=== PATIENT | male | born 1975 | race Two or more races ===

== ENCOUNTER 2018-01-14 00:21 | Emergency (ER) | payer MEDICARE, MEDICAID ==
[2018-01-14 01:09] LABS: HEMATOCRIT 51.7 % (41.0-60); HEMOGLOBIN 17.7 gm/dL (12-16); MEAN CELL VOLUME 89.5 fl (80-99); MEAN CORPUSCULAR HEMOGLOBIN 30.7 pg (26.0-30.0); MEAN CORPUSCULAR HGB CONC 34.3 pg (28.0-36.0); MEAN PLATELET VOLUME 9.1 fl; PLATELET COUNT 311 Th/cmm (150-400); RED BLOOD COUNT 5.77 Mil/cmm (4.30-5.70); RED CELL DISTRIBUTION WIDTH 12.4 % (11.5-20.0)
[2018-01-14] MEDS ORDERED: Lactated Ringer 1,000 ML IV ONE (01:11)
--- NOTE | 2018-01-14 01:19 | ED Physician Chart ---
ED Chief Complaint/HPI - Patient Information Date Seen:: 01/14/18 Time Seen:: 00:36 Chief Complaint:: abdominal pain History of Present Illness:: THIS IS A 42 YO MALE WHO STATES THAT HE HAS ABDOMINAL PAIN, NAUSEA AND VOMITING SINCE YESTERDAY. HE STATES THAT IT ALL STARTED AFTER HE ATE A [employer]BUG[employer] YESTERDAY. HE DENIES FEVER AND COUGH. THE PAIN IS 5/10 AND IN THE EPIGASTRIC AREA WITH NO RADIATION. HE DENIES CHEST PAIN. Allergies:: Allergies Allergy/AdvReac Type Severity Reaction Status Date / Time No Known Allergies Allergy Verified 01/14/18 00:42 Vitals:: Vital Signs - 8 hr 01/14/18 00:30 Temp 98.0 F HR 105 RR 18 BP 123/76 O2 Sat % 97 Historian:: Patient Review:: Nurse's Note Reviewed ED Review of Systems - Review of Systems General/Constitutional: No fever, No chills, No weight loss, No weakness, No diaphoresis, No edema, No loss of appetite Skin: No skin lesions, No rash, No bruising Head: No headache, No light-headedness Eyes: No loss of vision, No pain, No diplopia ENT: No earache, No nasal drainage, No sore throat, No tinnitus Neck: No neck pain, No swelling, No thyromegaly, No stiffness, No mass noted Cardio Vascular: No chest pain, No palpitations, No PND, No orthopnea, No edema Pulmonary: No SOB, No cough, No sputum, No wheezing GI: Nausea, Vomiting, No diarrhea, Pain, No melena, No hematochezia, No constipation, No hematemesis G/U: No dysuria, No frequency, No hematuria Musculoskeletal: No bone or joint pain, No back pain, No muscle pain Endocrine: No polyuria, No polydipsia Psychiatric: No prior psych history, No depression, No anxiety, No suicidal ideation Hematopoietic: No bruising, No lymphadenopathy Allergic/Immuno: No urticaria, No angioedema Neurological: No syncope, No focal symptoms, No weakness, No paresthesia, No headache, No seizure, No dizziness, No confusion, No vertigo ED Past Medical History - Past Medical History Obtainable: Yes Past Medical History: No significant medical hx Family History: None Social History: Non Smoker, Alcohol, No Drug Use, Employed Surgical History: other (FOOT SURGERY) Psychiatricy History: None Medication: Reviewed Family Medical History - Family Member Mother History Unknown: Yes ED Physical Exam - Physical Examination General/Constitutional: Awake, Well-developed, well-nourished, Alert, No distress, GCS 15, Non-toxic appearing, Ambulatory Head: Atraumatic Eyes: Lids, conjuctiva normal, PERRL, EOMI Skin: Nl inspection, No rash, No skin lesions, No ecchymosis, Well hydrated, No lymphadenopathy ENMT: External ears, nose nl, Nasal exam nl, Lips, teeth, gums nl Neck: Nontender, Full ROM w/o pain, No JVD, No nuchal rigidity, No bruit, No mass, No stridor Respiratory: Nl effort/Exclusion, Clear to Auscultation, No Wheeze/Rhonchi/Rales Cardio Vascular: RRR, No murmur, gallop, rubs, NL S1 S2 GI: No tenderness/rebounding/guarding (EPIGASTRIC TENDERNESS), No organomegaly, No hernia, Normal BS's, Nondistended, No mass/bruits, No McBurney tenderness : No CVA tenderness Extremities: No tenderness or effusion, Full ROM, normal strength in all extremities, No edema, Normal digits & nails Neuro/Psych: Alert/oriented, DTR's symmetric, Normal sensory exam, Normal motor strength, Judgement/insight normal, Mood normal, Normal gait, No focal deficits Misc: Normal back, No paraspinal tenderness ED Labs/Radiology/EKG Results - Lab Results Results: Abnormal Lab Results 01/14/18 01/14/18 01/14/18 01:00 01:00 01:00 WBC 15.0 H RBC 5.77 H Hgb 17.7 Hct 51.7 MCV 89.5 MCH 30.7 H MCHC Differential 34.3 RDW 12.4 Plt Count 311 MPV 9.1 Add Manual Diff YES Sodium 138 Potassium 3.5 Chloride 102 Carbon Dioxide 22.0 Anion Gap 17.5 H BUN 16 Creatinine 0.8 Est GFR ( Amer) > 60.0 Est GFR (Non-Af Amer) > 60.0 BUN/Creatinine Ratio 20.0 Glucose 142 H Whole Bld Lactic Acid 1.33 Calcium 10.1 Total Bilirubin 1.4 H AST 18 ALT 28 Alkaline Phosphatase 76 Total Protein 8.3 Albumin 4.7 Globulin 3.6 Albumin/Globulin Ratio 1.3 ED Assessment - Assessment General Assessment: GASTRITIS ED Septic Shock - . Is Septic Shock (SBP<90, OR Lactate>4 mmol\L) present?: No - <6hrs of presentation: Vital Signs: Vital Signs - 8 hr 01/14/18 00:30 Temp 98.0 F HR 105 RR 18 BP 123/76 O2 Sat % 97 ED Reassessment (Disposition) - Reassessment Reassessment Condition:: Improved - Diagnosis Diagnosis:: GASTRITIS - Aftercare/Follow up Instructions Aftercare/Follow-Up Instructions:: Counseled pt regarding lab results/diagnosis & need follow up, Refer to Discharge Instructions, Counseled pt & family regarding lab results/diagnosis & need follow up Medication Prescribed:: PEPCID - Patient Disposition Discharge/Transfer:: Home Condition at Disposition:: Improved
[2018-01-14 01:28] LABS: ALB/GLOB RATIO 1.3 (1.0-1.8); ALBUMIN 4.7 gm/dL (4.2-5.5); ALKALINE PHOSPHATASE 76 U/L (34-104); ANION GAP 17.5 (7.0-16.0); BILIRUBIN,TOTAL 1.4 mg/dL (0.3-1.0); BUN - UREA NITROGEN 16 mg/dL (7-25); CALCIUM SERUM 10.1 mg/dL (8.6-10.3); CHLORIDE 102 mEq/L (98-107); CREATININE - SERUM 0.8 mg/dL (0.7-1.3); GFR AFRICAN-AMERICAN > 60.0 ml/min (>90); GFR NON AFRICAN-AMERICAN > 60.0 ml/min; GLUCOSE 142 mg/dL (70-105); POTASSIUM SERUM 3.5 mEq/L (3.5-5.1); SGOT 18 U/L (13-39); SGPT/ALT 28 U/L (7-52); SODIUM SERUM 138 mEq/L (136-145); TOTAL PROTEIN,SERUM 8.3 gm/dL (6.0-8.3)
[2018-01-14] MEDS ORDERED: cefTRIAXone 1 GM in Sodium Chloride 0.9% 50 ML IV ONE (01:41)
[2018-01-14 02:20] LABS: EOSINOPHIL 1 % (0-5); LYMPHOCYTE 11 % (20-50); MONOCYTE 1 % (2-10); NEUTROPHILS 87 % (40-80); PLATELET ESTIMATE ADEQUATE (NORMAL)
== END 2018-01-14 03:25 | disposition home or self-care (01) ==
LOC: ER 00:21
DX: K29.70 Gastritis, unspecified, without bleeding (principal)
CPT/HCPCS: 99284; 96365; 96375; 36415; 83605; 85007; 85025; 80053; 87040; J1885; J2405; J0696; Z7502